=== PATIENT | female | born 1945 | race Caucasian/White ===

== ENCOUNTER 2017-01-25 15:02 | Emergency (ER) | payer MEDICARE ==
[~2017-01-25] VITALS: Ht 152.4 cm; Wt 97.1 kg
[~2017-01-25 15:02] MED LIST: AMARYL2 MG PO; ASPIRIN81 MG PO; CARVEDILOL25 MG PO; COREG25 MG PO; CRESTOR10 MG PO; GLUCOPHAGE500 MG PO; LOTRIMIN AF28.35 GM TOP; MOBIC7.5 MG PO; NORVASC5 MG PO; PLAVIX75 MG PO; PRILOSEC20 MG PO; TOPROL XL25 M1 PO; TYLENOL EXTRA500 MG PO; VASOTEC10 MG PO; ZITHROMAX250 MG PO; ZOCOR20 MG PO
[2017-04-15] MEDS ORDERED: PROTONIX40 M2 PO (03:57)
[2017-04-15] MEDS ORDERED: ZOCOR20 MG PO (03:58)
[2017-04-15] MEDS ORDERED: NEURONTIN300 MG PO (03:59)
[2017-04-15] MEDS ORDERED: MOBIC15 MG PO (04:00)
[2017-04-15] MEDS ORDERED: BESYLATE PO (04:03)
== END 2017-01-25 17:03 | disposition short-term general hospital (02) ==
LOC: ER 15:02
DX: J45.909 Unspecified asthma, uncomplicated (principal); E11.9 Type 2 diabetes mellitus without complications; E78.5 Hyperlipidemia, unspecified; M19.90 Unspecified osteoarthritis, unspecified site; Z79.02 Long term (current) use of antithrombotics/antiplatelets; Z79.84 Long term (current) use of oral hypoglycemic drugs; Z79.899 Other long term (current) drug therapy